=== PATIENT | female | born 1995 | race Caucasian/White ===

== ENCOUNTER 2017-03-01 13:47 | Outpatient (CLI) | END 2017-03-01 13:48 | disposition home or self-care (01) | LOC: LAB 13:47 | PROVIDERS: ATTEND Nurse Practitioner Family | DX: J02.9 Acute pharyngitis, unspecified (principal) | CPT/HCPCS: 87651; 87880 ==

== ENCOUNTER 2017-09-17 15:51 | Outpatient (CLI) | END 2017-09-17 15:52 | disposition home or self-care (01) | LOC: FCC-LAB 15:51 | PROVIDERS: ATTEND Family Medicine | DX: F41.8 Other specified anxiety disorders (principal) | CPT/HCPCS: 36415; 80053; 84443; 85025 ==